=== PATIENT | female | born 1990 | race Caucasian/White ===

== ENCOUNTER → 2020-03-09 10:49 | Outpatient (CLI) | payer OTHER, SELFPAY ==
--- NOTE | ~2020-03-09 | US_ITS ---
EXAMINATION: US transvaginal EXAM DATE: 03/09/2020 11:11 INDICATION: Left adnexal, perineal pain. TECHNIQUE: Pelvic transvaginal sonogram was performed. There are multiple grayscale and Doppler imag es available for interpretation. Comparison is made to prior examination from 08/21/2017. FINDINGS: Uterus measures 8.5 x 3.5 x 4.6 cm, with IUD centrally located inside the endometrial cavi ty. Probable anterior fundal fibroid measuring 2 cm. Endometrial stripe measures 2 mm, within normal limits. There is no free pelvic fluid. Right adnexa: The ovary measures 3.0 x 3.5 x 2.1 cm and is morphologically normal. Ovarian vascular f low confirmed. Left adnexa: The ovary measures 3.4 x 2.6 x 3.2 cm and is morphologically normal. Ovarian vascular fl ow confirmed. IMPRESSION: 1. Small fundal fibroid. 2. IUD in position. Reviewed, dictated and finalized at location A.
== END ==
PROVIDERS: Visit Provider Nurse Practitioner
DX: R10.2 Pelvic and perineal pain (principal); D25.9 Leiomyoma of uterus, unspecified; Z97.5 Presence of (intrauterine) contraceptive device
CPT/HCPCS: 76830

== ENCOUNTER → 2020-07-13 09:27 | Outpatient (CLI) | payer OTHER, SELFPAY ==
--- NOTE | ~2020-07-13 | US_ITS ---
EXAMINATION: US OB <= 14 weeks fetus DATE: 07/13/2020 09:54 INDICATION: TECHNIQUE: Real-time transabdominal and transvaginal obstetric ultrasound. FINDINGS: No prior studies for comparison. The uterus measures 12.2 x 7.4 x 8.2 cm. There is an intrauterine gestational sac, with pole id entified. There are 2 areas of subchorionic hemorrhage including superiorly on the left measuring 4.9 x 5.2 x 3.5 cm and inferiorly and posteriorly measuring 2.2 x 1.3 x 1.2 cm. The crown rump length me asures 2.4 cm, which correlates with a estimated gestational age of 9 weeks 1 day. heart tone s are identified measuring 170 BPM. Right ovary is unremarkable. Left ovary not visualized. IMPRESSION: 1. SL IUP with an EGA of 9 weeks, 1 days (EDC by current ultrasound of 02/14/2021). 2: 2 large areas of subchorionic hemorrhage, largest superiorly on the left measuring 5.2 x 4.9 x 3. 5 cm. Reviewed, dictated and finalized at location A. UNICATION AND OUTREACH MANAGER IMPRESSION: 1. SL IUP with an EGA of 9 weeks, 1 days (EDC by current ultrasound of ). 2: 2 large areas of subchorionic hemorrhage, largest superiorly on the left me asuring 5.2 x 4.9 x 3.5 cm.
== END ==
PROVIDERS: Visit Provider Obstetrics & Gynecology
DX: Z36.87 Encounter for antenatal screening for uncertain dates (principal); Z3A.09 9 weeks gestation of pregnancy; O36.8911 Maternal care for other specified fetal problems, first trimester, fetus 1
CPT/HCPCS: 76801

== ENCOUNTER 2020-07-13 10:39 | Outpatient (RCR) | payer OTHER, SELFPAY ==
[2020-07-13] MEDS: RHO(D) IMMUNE GLOBULIN 300 MCG SYRINGE IM (15:31)
== END 2020-10-11 23:59 | disposition home or self-care (01) ==
LOC: ANHLAB 10:39
PROVIDERS: Visit Provider Obstetrics & Gynecology
DX: Z29.13 Encounter for prophylactic Rho(D) immune globulin (principal); O26.851 Spotting complicating pregnancy, first trimester; O36.0990 Maternal care for other rhesus isoimmunization, unspecified trimester, not applicable or unspecified; Z3A.00 Weeks of gestation of pregnancy not specified
CPT/HCPCS: 36415; 85461; 90384; 96372; J2790

== ENCOUNTER → 2020-07-29 13:22 | Outpatient (CLI) | payer OTHER, SELFPAY ==
--- NOTE | ~2020-07-29 | US_ITS ---
EXAMINATION: US OB <= 14 weeks fetus DATE: 07/29/2020 13:40 INDICATION: Subchorionic hematoma TECHNIQUE: Real-time pelvic ultrasound utilizing transabdominal probe was performed. The larry muller radiologist was not present for the study. COMPARISON: 03/09/2020 FINDINGS: The uterus measures 14.8 x 6.5 x 9.4 cm. There is an intrauterine gestational sac. A yolk sac and fe [place] pole are identified. The crown rump length measures 4.3 cm, which correlates within 2 days is wit lan range of measurement error of the previously estimated gestational age of 11 weeks and 3 days. Fe [place]lin heart motion is identified measuring 175 beats per minute (bpm) by M-mode Doppler. Interval increase in size of a now 3.9 x 4.3 x 3.9 cm hypoechoic fibroid at the anterior uterine fund us. Interval increase in size of a large subchorionic hematoma extending along the posterior and left sides of the gestational sac with anterior placenta. The posterior component measures 9.0 cm cranioc audal length, 7 mm thickness and approximately 2.5 cm in medial to lateral width. This appears contig uous with the portion of the hematoma along the left side of the uterus which measures 8.0 cm cranioc audal length, up to 4.1 cm AP thickness and 2.7 cm in medial to lateral width. The ovaries are not vi sualized. IMPRESSION: 1. Single living fetus with heart rate of 175 bpm. 2. [place]-rump length of 4.3 similar which is concordant with previously estimated gestational age of 11 weeks 3 day(s) +/- 6 day(s) with ultrasound estimated date of delivery ([facility]) of 02/14/2021. 3. Large subchorionic hematoma. 4. Hypoechoic region at the anterior fundus which appears to represent enlargement of a now 4.3 x 3.9 x 3.3 cm uterine fibroid which measured 2.1 x 1.7 x 1.6 cm on prior ultrasound dated 03/09/2020. Reviewed, dictated and finalized at location A. RNATIONAL SALES REPRESENTATIVE IMPRESSION: 1. Single living fetus with heart rate of 175 bpm. 2. [place]-rump length of 4.3 similar which is concordant with previously estimat ed gestational age of 11 weeks 3 day(s) +/- 6 day(s) with ultrasound estimated date of delivery ([facility]) of 02/14/2021. 3. Large subchorionic hematoma. 4. Hypoechoic region at the anterior fundus which appears to represent enlargem ent of a now 4.3 x 3.9 x 3.3 cm uterine fibroid which measured 2.1 x 1.7 x 1.6 cm on prior ultrasound dated 03/09/2020.
== END ==
PROVIDERS: Visit Provider Obstetrics & Gynecology
DX: O36.8910 Maternal care for other specified fetal problems, first trimester, not applicable or unspecified (principal); Z3A.01 Less than 8 weeks gestation of pregnancy
CPT/HCPCS: 76801

== ENCOUNTER → 2020-08-10 08:17 | Outpatient (CLI) | payer OTHER, SELFPAY ==
--- NOTE | ~2020-08-10 | US_ITS ---
EXAMINATION: US OB limited DATE: 08/10/2020 08:48 INDICATION: Subchorionic hematoma follow-up, first trimester TECHNIQUE: Real-time ultrasound of the pelvis was performed. The interpreting radiologist was not pre sent for the study. COMPARISON: 07/29/2020 FINDINGS: The uterus measures 16.9 x 7.2 cm. There is a 6.5 x 1.8 x 2.1 cm hypoechoic area adjacent t o the gestational sac which previously measured 9.0 x 2.5 x 0.7 cm. cardiac activity and movement are noted. heart rate is 168 beats per minute (bpm). The crown rump length measu res 6.1 cm , which correlates with an estimated gestational age of 12 weeks and 4 day(s) (+/-) 8 day( s). The ovaries are not visualized however no adnexal abnormality is identified. IMPRESSION: 1. Single live intrauterine . 2. Large subchronic hematoma with slight decrease in size. Reviewed, dictated and finalized at location A. IFIED WELLNESS PROGRAM COORDINATOR
== END ==
PROVIDERS: Visit Provider Obstetrics & Gynecology
DX: O36.8910 Maternal care for other specified fetal problems, first trimester, not applicable or unspecified (principal); O36.8911 Maternal care for other specified fetal problems, first trimester, fetus 1; Z3A.00 Weeks of gestation of pregnancy not specified
CPT/HCPCS: 76815

== ENCOUNTER → 2020-09-07 08:48 | Outpatient (CLI) | payer BC, SELFPAY ==
--- NOTE | ~2020-09-07 | US_ITS ---
EXAMINATION: US OB limited DATE: 09/07/2020 09:16 INDICATION: Subchorionic hematoma TECHNIQUE: Real-time ultrasound of the pelvis was performed. The interpreting radiologist was not pre sent for the study. COMPARISON: 08/10/2020 FINDINGS: There is a single living fetus in vertex presentation. The placenta is anterior. heart rate is 147 beats per minute (bpm). The amniotic fluid is subjectively normal. There are a few hypoechoic fl uid collections which bulges slightly into the amniotic cavity, one of which is positioned along the amniotic side of the placenta consistent with subamniotic hematomas. The collection along the surface of the placenta measures 5.0 x 1.3 x 2.8 cm. A second smaller collection seen on the opposite venetian blind mechanic ior side of the gestational sac and measures 4.9 x 3.2 x 0.6 cm. Finally there is a third collection at the left side of the fundus along the margin of the placenta which measures 7.0 x 2.1 x 2.8 cm whi ch is minimally increase in size, previously measuring 6.5 x 1.8 x 2.1 cm and which could represent e ither an additional subamniotic hematoma or subchorionic hematoma. IMPRESSION: 1. Single living fetus in vertex presentation with heart rate of 147 bpm. 2. Slight increase in size of a now 7.0 x 2.1 x 2.8 cm fluid collection along the left margin of the placenta which could represent either subamniotic or subchorionic hematoma. 3. 2 additional slightly smaller new fluid collections, one along the anterior margin of the placenta and the second posteriorly which bulges into the amniotic cavity suggesting these represent subamnio tic hematomas. Reviewed, dictated and finalized at location A. IL ANALYTICS MANAGER IMPRESSION: 1. Single living fetus in vertex presentation with heart rate of 147 bpm . 2. Slight increase in size of a now 7.0 x 2.1 x 2.8 cm fluid collection along t he left margin of the placenta which could represent either subamniotic or subc horionic hematoma. 3. 2 additional slightly smaller new fluid collections, one along the anterior margin of the placenta and the second posteriorly which bulges into the amnioti c cavity suggesting these represent subamniotic hematomas.
== END ==
PROVIDERS: Visit Provider Obstetrics & Gynecology Gynecology
DX: O36.8910 Maternal care for other specified fetal problems, first trimester, not applicable or unspecified (principal)
CPT/HCPCS: 76815

== ENCOUNTER → 2020-09-28 08:24 | Outpatient (CLI) | payer BC, SELFPAY ==
--- NOTE | ~2020-09-28 | US_ITS ---
US OB limited 09/28/2020 09:12 Indication: Follow-up subchorionic hematoma Procedure: Realtime limited obstetrical ultrasound Comparison: 09/07/2020 Findings: There is a single living intrauterine in transverse presentation with heart rate of 154 BPM. Placenta is located anterior/fundal measuring 15.6 cm to the cervix. Amniotic fluid volume is subjectively normal. There is a subchorionic hemorrhage measuring 3.1 x 2.3 x 1.7 cm. Impression: 1: Single living intrauterine in transverse presentation. 2: Subchorionic hemorrhage measuring 3.1 x 2.3 x 1.7 cm. Reviewed, dictated and finalized at location B. I SITE LEASING CONSULTANT Impression: 1: Single living intrauterine in transverse presentation. 2: Subchorionic hemorrhage measuring 3.1 x 2.3 x 1.7 cm.
== END ==
PROVIDERS: Visit Provider Obstetrics & Gynecology
DX: O36.8320 Maternal care for abnormalities of the fetal heart rate or rhythm, second trimester, not applicable or unspecified (principal); Z3A.11 11 weeks gestation of pregnancy
CPT/HCPCS: 76815